=== PATIENT | female | born 1975 | race Caucasian/White ===

== ENCOUNTER 2017-03-28 21:28 | Emergency (ER) ==
[2017-03-28] MEDS ORDERED: NORCO 5-325 PO STA (21:42)
[2017-03-28] MEDS ORDERED: CLEOCIN PO STA (21:42)
[2017-03-28 21:44] VITALS: BP 145/94; TEMP 99.4; BMI 36.0
--- NOTE | 2017-03-28 21:46 | ED.PDOC ---
General ED Provider: Dr. JAD WANG-ER Chief Complaint: Extremity Swelling/Pain Stated Complaint: her left leg is red and hot Time Seen by Physician: 21:44 Mode of Arrival: Wheelchair Information Source: Family Exam Limitations: No limitations Primary Care Provider: JAD WANG Nursing and Triage Documentation Reviewed and Agree: Yes Skin Complaint Exam - Skin Rash/Itching Complaint/Exam Onset/Duration: 24hrs Symptoms Are: Still present Initial Severity: Mild Current Severity: Mild Location: left leg Aggravating: Reports: None Alleviating: Reports: None Associated Signs and Symptoms: Denies: Difficulty breathing, Fever, Chills Skin Findings: Present: Maculae Differential Diagnoses: Other Review of Systems - Review Of Systems Constitutional: Reports: No symptoms Eyes: Reports: No symptoms Ears, Nose, Mouth, Throat: Reports: No symptoms Respiratory: Reports: No symptoms Cardiac: Reports: No symptoms GI: Reports: No symptoms : Reports: No symptoms Musculoskeletal: Reports: No symptoms Skin: Reports: Rash Neurological: Reports: No symptoms Endocrine: Reports: No symptoms Hematologic/Lymphatic: Reports: No symptoms All Other Systems: Reviewed and Negative Past Medical History - Past Medical History Previously Healthy: Yes Endocrine: Reports: None Cardiovascular: Reports: None Respiratory: Reports: None Hematological: Reports: None Gastrointestinal: Reports: None Genitourinary: Reports: None Neuro/Psych: Reports: Seizure Musculoskeletal: Reports: None Cancer: Reports: None Last Menstrual Period: n/a Other Pertinent Past Medical History: Microcephaly - Surgical History General Surgical History: Reports: None - Family History Family History: Reports: None - Social History Smoking Status: Never smoker Hx Substance Use: No Alcohol Screening: None - Immunizations Tetanus Shot up to Date: No (unsure) Physical Exam - Physical Exam Appearance: Well-appearing, No pain distress, Well-nourished Pain Distress: Mild Eyes: TEENA, EOMI, Conjunctiva clear ENT: Ears normal, Nose normal, Oropharynx normal Neck: Supple Respiratory: Airway patent, Breath sounds clear, Breath sounds equal, Respirations nonlabored Cardiovascular: RRR, Pulses normal, No rub, No murmur GI/: Soft, Nontender, No masses, Bowel sounds normal, No Organomegaly Musculoskeletal: Normal strength, ROM intact, No edema, No calf tenderness Skin: Warm, Dry, Normal color Neurological: Sensation intact, Motor intact, Reflexes intact, Cranial nerves intact, Alert, Oriented Psychiatric: Affect appropriate, Mood appropriate Critical Care Note - Critical Care Note Total Time (mins): 0 Course - Course Orders, Labs, Meds: Orders Category Date Time Status Clindamycin HCl [Cleocin] MEDS 03/28/17 21:42 Discontinued 150 mg PO ONCE STA Hydrocodone Bit/Acetaminophen [[place] 5-325] MEDS 03/28/17 21:42 Discontinued 1 tab PO ONCE STA Medications Discontinued Medications Generic Name Dose Route Start Last Admin Trade Name Phyllis PRN Reason Stop Dose Admin Acetaminophen/Hydrocodone Bitart 1 tab 03/28/17 21:42 [place] 5-325 PO 03/28/17 21:43 ONCE STA Clindamycin HCl 150 mg 03/28/17 21:42 Cleocin PO 03/28/17 21:43 ONCE STA Vital Signs: Temp Pulse Resp BP Pulse Ox 03/28/17 21:32 99.4 F 83 18 145/94 H 94 L Departure - Departure Time of Disposition: 21:45 Disposition: HOME SELF-CARE Discharge Problem: Cellulitis Qualifiers: Site of cellulitis: extremity Site of cellulitis of extremity: upper extremity Laterality: left Qualifier Code: (L03.114) Cellulitis of left upper limb Instructions: Cellulitis (ED) Condition: Good Pt referred to PMD for follow-up: Yes Additional Instructions: keep leg elevatd--clindamycin 150mg tid x 7days--norco 5mg q 6hs prn pain #10-- see me on sunday in the office (call tomorrow for appt) Allergies/Adverse Reactions: Allergies ceftriaxone sodium [From Rocephin] Adverse Reaction (Verified 03/28/17 21:42) Swelling Home Medications: Ambulatory Orders Acetaminophen [Tylenol] 1,000 mg PO Q8H PRN 08/26/15 Ibuprofen 200 mg PO Q4H PRN 08/26/15 Phenobarbital 64.8 mg PO BID 08/26/15 Phenytoin Sodium Extended 200 mg PO BEDTIME 08/26/15 Phenytoin Sodium Extended [Dilantin] 100 mg PO 0600 08/26/15 Clindamycin HCl [Cleocin] 150 mg PO Q6HR #28 cap 08/27/15 Disposition Discussed With: Family
== END 2017-03-28 21:53 | disposition home or self-care (01) ==
LOC: ED 21:28
DX: L03.114 Cellulitis of left upper limb (principal)
CPT/HCPCS: 99282

== ENCOUNTER 2019-07-31 14:04 | Inpatient (IN) ==
[2019-07-31 14:48] VITALS: BMI 37.4
--- NOTE | 2019-07-31 16:56 | US ---
EXAM: ULTRASOUND LOWER EXTREMITY VENOUS DOPPLER EXAM HISTORY: Cellulitis. FINDINGS: Left lower extremity venous Doppler exam. Real time jay-scale, Doppler spectral analysis and color-flow Doppler imaging performed. The veins targeted for evaluation include the common femo ral, greater saphenous, profundus, femoral, popliteal, peroneal, anterior tibial and posterior tibial . Exam was described as technically difficult secondary to the patient's inability to cooperate. The p osterior tibial and anterior tibial veins were unable to be seen. The evaluated veins demonstrated n ormal spontaneous flow and compression without evidence of thrombosis. IMPRESSION: Exam limitations as described. No venous thrombosis identified within the areas evaluate d.
[2019-07-31] MEDS: MOTRIN PO PRN ×2 (17:10→21:41)
[2019-07-31] MEDS: TYLENOL PO PRN (17:56)
[2019-07-31] MEDS: VALIUM PO PRN (19:42)
[2019-07-31] MEDS: CLEOCIN 600 MG in SODIUM CHLORIDE 50 ML IV SCH ×2 (19:42→20:36)
[2019-07-31] MEDS: PHENOBARBITAL PO SCH (20:05)
[2019-07-31] MEDS: DILANTIN PO SCH (20:05)
[2019-07-31] MEDS ORDERED: CLEOCIN 300 MG in SODIUM CHLORIDE 50 ML IV SCH (21:00)
[2019-08-01] MEDS: CLEOCIN 600 MG in SODIUM CHLORIDE 50 ML IV SCH ×3 (05:19→20:16)
[2019-08-01] MEDS: DILANTIN PO SCH ×2 (05:19→20:16)
[2019-08-01] MEDS: PHENOBARBITAL PO SCH ×2 (09:27→20:16)
[2019-08-01] MEDS: TYLENOL PO PRN (14:06)
[2019-08-01] MEDS: VALIUM PO PRN (14:06)
[2019-08-01] MEDS: MOTRIN PO PRN (21:58)
[2019-08-02] MEDS: DILANTIN PO SCH ×2 (06:12→20:18)
[2019-08-02] MEDS: CLEOCIN 600 MG in SODIUM CHLORIDE 50 ML IV SCH ×3 (06:12→20:21)
[2019-08-02] MEDS: PHENOBARBITAL PO SCH ×2 (08:44→20:17)
[2019-08-02] MEDS: VALIUM PO PRN (14:46)
[2019-08-03] MEDS: CLEOCIN 600 MG in SODIUM CHLORIDE 50 ML IV SCH (05:20)
[2019-08-03] MEDS: DILANTIN PO SCH (05:20)
[2019-08-03 05:42] VITALS: BP 131/73; TEMP 98.1
[2019-08-03] MEDS: PHENOBARBITAL PO SCH (08:45)
--- NOTE | 2019-08-19 11:49 | HP ---
CHIEF COMPLAINT: "Her leg is swollen and is hot." DISCUSSION: This is a 43-year-old lady with history of developmental delay, has had previous cellulitis who presented to the hospital with swelling, erythema, warmth and tenderness to the left lower extremity. She has been on outpatient oral Clindamycin without improvement. She had a fever up to 101. Because she had failed outpatient treatment she was admitted for IV antibiotics. PAST MEDICAL HISTORY: MEDICATIONS: Phenobarb Dilantin ALLERGIES: ROCEPHIN PAST MEDICAL HISTORY: History of seizure disorder History of microencephaly Developmental delay PAST SURGICAL HISTORY: No significant surgery. SOCIAL HISTORY: She resides with her family. No alcohol or ilicit drug use noted. FAMILY HISTORY: Reviewed and thought not to be pertinent to discussion. REVIEW OF SYSTEMS: No low grade fever, no chills. No vomiting. No abdominal pain. No blood in the stool, urinary symptoms or seizures. PHYSICAL EXAMINATION: V/S: Temperature 100, pulse 100, respiratory rate 18, blood pressure 120/80. HEENT: Pupils are round. NECK: Supple. CHEST: Clear. CARDIOVASCULAR: Regular rate and rhythm. ABDOMEN: Soft, nontender. EXTREMITIES: Distal extremities reveals erythema of the lower extremity below the knee about mid calf, mid ankle is warm and tender. Pavel's sign is negative. ASSESSMENT: 1. CELLULITIS LOWER EXTREMITY FAILING OUTPATIENT TREATMENT. PLAN: 1. IV fluids. 2. Antibiotics. 3. Elevation of extremity. 4. Please see orders. MTDD
--- NOTE | 2019-08-19 11:54 | DS ---
PRINCIPAL DIAGNOSIS: 1. CELLULITIS FAILING OUTPATIENT TREATMENT. 2. SEIZURE DISORDER. DISCUSSION: This is a 43-year-old lady with history of developmental delay and seizure disorder who presented with persistent left lower extremity, erythema, warmth and tenderness despite the use of outpatient antibiotics. Because she failed outpatient treatment she was admitted for IV antibiotics. She was noted to have a documented temperature of 101 at home. CLINICAL COURSE: The patient was admitted with IV antibiotics and elevation. The warmth and erythema seemed to have resolved and at this point the patient was dischasrged with outpatient antibiotics. PAULA
== END 2019-08-03 11:07 | disposition home or self-care (01) | DRG 603 ==
LOC: MEDSURG B 14:04
PROVIDERS: ADMIT Family Medicine; ATTEND Family Medicine
DX: G40.909 Epilepsy, unspecified, not intractable, without status epilepticus; R60.0 Localized edema; L03.119 Cellulitis of unspecified part of limb